=== PATIENT | male | born 1995 | race Asian ===

== ENCOUNTER 2019-02-12 16:37 | Emergency (ER) | payer OTHER ==
[~2019-02-12] VITALS: Ht 170.2 cm; Wt 60.3 kg
--- NOTE | 2019-02-12 16:59 | NUR ---
ED Nurse Note: PT WALKED IN TO ER TODAY FROM HOME. AOX4. PT ACCOMPANIED BY DOPE SPRAYER DUE TO HX OF AUTISM. PT C/O ITCHY GENERALIZED BODY RASH X 1 MONTH AGO. PT DENIES ANY CHANGES TO ROUTINE. PT DENIES ANY NEW FRAGRANCES, DETERGENTS, MEDS, OR OTHER PRODUCTS.
[2019-02-12 17:00] VITALS: BP 112/82
[2019-02-12] MEDS ORDERED: KENALOG 0.5% CR15 GM APPLIC (17:09)
[2019-02-12] MEDS ORDERED: PERMETHRIN60 GM TOPIC (17:09)
--- NOTE | 2019-02-12 17:13 | Emergency Room Report ---
History of Present Illness General Chief Complaint: Skin Rash/Abscess Source: Patient Present Illness HPI 23-year-old male patient presents the ER brought in by care worker from [facility]. Patient has a history of autism. Reports had a rash on his body for the past month. Reports is pruritic. Denies pain. Denies fever, chest pain, shortness of breath. Timothy abdominal pain, denies vomiting or diarrhea. Reports the rash spares his palms and soles. Denies recent camping trips. Denies recent sexual activity. Denies new detergents or soaps. Denies history of allergy symptoms. Reports that he lives alone in his own room. Denies contacts at his facility with similar symptoms. Denies other symptoms. Reports has not taken medication for relief of symptoms. Allergies: Coded Allergies: Animal Dander (Verified Allergy, Unknown, 02/12/19) Patient History Past Medical History: see triage record Reviewed Nursing Documentation: PMH: Agreed; PSxH: Agreed Nursing Documentation-PMH History Of Psychiatric Problem: Yes - Autism Review of Systems All Other Systems: negative except mentioned in HPI Physical Exam Vital Signs Date Time Temp Pulse Resp B/P (MAP) Pulse Ox O2 Delivery O2 Flow Rate FiO2 02/12/19 16:46 97.5 84 18 115/79 98 Room Air Sp02 EP Interpretation: reviewed, normal General Appearance: well appearing, no apparent distress, alert, GCS 15, non- toxic Head: normocephalic, atraumatic Eyes: bilateral eye normal inspection, bilateral eye PERRL ENT: hearing grossly normal, normal pharynx, no angioedema, normal voice, uvula midline, moist mucus membranes Neck: full range of motion Respiratory: lungs clear, normal breath sounds, no rhonchi, no respiratory distress, no accessory muscle use, no wheezing, speaking full sentences Cardiovascular #1: regular rate, rhythm, no edema Musculoskeletal: back normal, digits/nails normal, gait/station normal, normal range of motion, non-tender Neurologic: alert, oriented x3, responsive, motor strength/tone normal, sensory intact Psychiatric: mood/affect normal Skin: rash - Maculopapular rash over upper extremities and upper back, lower extremities, no surrounding erythema or edema, no palpable mass, no crusting, no vesicles, no blisters Medical Decision Making PA Attestation Dr. Doshi is my supervising Physician whom patient management has been discussed with. Diagnostic Impression: Primary Impression: Rash and other nonspecific skin eruption ER Course Pt. presents to the ED c/o rash. Ddx considered but are not limited to atopic dermatitis, scabies, shingles, hives, urticaria, angiodema, allergic reaction, impetigo. Vital signs: are WNL, pt. is afebrile ER COURSE Will provide patient with triamcinolone for pruritus symptoms. Will also provide patient with permethrin to cover for possible scabies. Do not scratch or itch. Advised on cleaning all clothes and bedding. Follow-up with primary care provider discussed referral to dermatology. Followup with dermatology. DISCHARGE: At this time pt. is stable for d/c to home. Patient resting comfortably, in no acute distress, nontoxic appearinge. Will provide printed patient care instructions, and any necessary prescriptions. Care plan and follow up instructions have been discussed with the patient prior to discharge. Patient provided with list of healthcare clinics to establish primary care physician. Patient instructed to follow-up with primary care provider in 3 - 5 days. Patient questions asked and answered. ER precautions given. Patient instructed to return to ER immediately for any new or worsening of symptoms including but not limited to increasing SOB, persistent fever. - Please note that this Emergency Department Report was dictated using iSTARparking analyst technology software, occasionally this can lead to erroneous entry secondary to interpretation by the dictation equipment. Last Vital Signs Date Time Temp Pulse Resp B/P (MAP) Pulse Ox O2 Delivery O2 Flow Rate FiO2 02/12/19 17:00 97.8 82 17 112/82 99 Room Air Status: improved Disposition: HOME, SELF-CARE Condition: Stable Scripts Triamcinolone Acet (Triamcinolone Acetonide) 15 Gm Cream..g. 15 GM APPLIC BID, #15 GM Prov: Truman Mota 02/12/19 Permethrin* (ELIMITE*) 60 Gm Cream..g. 1 APPLIC TOPIC ONCE, #60 GM 0 Refills Apply cream from head to toe; leave on for 8-14 hours before washing off with water; may reapply in 1 week if live mites appear. Prov: Truman Mota 02/12/19 Patient Instructions: Rash, Scabies, Pediatric Additional Instructions: Followup with primary care provider in 3 -5 days. Request referral to dermatology as needed. Do not scratch or itch. Apply cool compresses to affected area. Wash all clothes and bedding. Take medications as directed. Do not apply topical steroid medication to face or skin creases. SE Benadryl drowsiness, do not take prior to drinking, driving, operating heavy machinery. Take Claritin during the day and Benadryl at night for itching symptoms. Patient questions asked and answered. ER precautions given, patient instructed to return to ER immediately for any new or worsening of symptoms. [facility] Truman Mota Feb 12, 2019 17:13
[2019-02-12 17:22] VITALS: BP 116/84
--- NOTE | 2019-02-12 17:23 | NUR ---
ED Nurse Note: PT SITTING PEACEFULLY IN BED IN NAD. AOX4. EAP SPECIALIST AT BEDSIDE. PRESCRIPTIONS AND DISCHARGE PAPERWORK EXPLAINED TO EAP SPECIALIST. EAP SPECIALIST VERBALIZES UNDERSTANDING AND ALL QUESTIONS ANSWERED. PRESCRIPTIONS AND DISCHARGE PAPERWORK GIVEN TO EAP SPECIALIST AND ID WRISTBAND REMOVED FROM PT. PT WALKED OUT OF ER WITH STEADY GAIT AND ALL BELONGINGS ACCOMPANIED BY EAP SPECIALIST.
== END 2019-02-12 17:45 | disposition home or self-care (01) ==
LOC: EMR 17:26
DX: R21 Rash and other nonspecific skin eruption (principal); F84.0 Autistic disorder; Z91.048 Other nonmedicinal substance allergy status
CPT/HCPCS: 99282

== ENCOUNTER 2019-05-03 09:40 | Emergency (ER) | payer OTHER ==
[~2019-05-03] VITALS: Ht 170.2 cm; Wt 55.3 kg
[~2019-05-03 09:40] MED LIST: KENALOG 0.5% CR15 GM APPLIC; PERMETHRIN60 GM TOPIC
[2019-05-03 09:57] VITALS: BP 114/65
--- NOTE | 2019-05-03 09:57 | NUR ---
ED Nurse Note: Pt came in from Residential Facility with guardian due to bug bite all over the body x " a couple of days". No complaint of pain. AOx3, VSS tasha. Will cont to monitor.
--- NOTE | 2019-05-03 10:03 | Emergency Room Report ---
History of Present Illness General Chief Complaint: Skin Rash/Abscess Source: Patient, Caregiver Present Illness HPI Patient presents with a itchy rash. He has never had allergies. He just visited his parents over the weekend. He is not sure how he got these. People think that they are bites. His vaccinations are up-to-date. The patient has some developmental delay and therefore it is difficult to obtain a exact history. He complains about itching. There is no fever. He denies any pain. He was treated for scabies with permethrin and triamcinolone 02/12/19. The staff state this rash just occurred. Allergies: Coded Allergies: Animal Dander (Verified Allergy, Unknown, 02/12/19) Patient History Past Medical History: see triage record Social History: Denies: smoking, alcohol use, drug use Social History Narrative in a care facility Reviewed Nursing Documentation: PMH: Agreed; PSxH: Agreed Nursing Documentation-PMH Past Medical History: No Stated History Review of Systems Constitutional: Reports: see HPI Eye: Denies: discharge ENT: Denies: throat pain Respiratory: Denies: shortness of breath Gastrointestinal: Denies: diarrhea, nausea, vomiting Genitourinary: Denies: dysuria Musculoskeletal: Denies: joint pain Skin: Reports: see HPI Psychiatric: Reports: see HPI Allergic: Reports: see HPI Physical Exam Vital Signs Date Time Temp Pulse Resp B/P (MAP) Pulse Ox O2 Delivery O2 Flow Rate FiO2 05/03/19 09:46 98 20 114/65 (81) 97 Room Air Sp02 EP Interpretation: reviewed, normal General Appearance: well appearing, no apparent distress Head: normocephalic, atraumatic Eyes: bilateral eye normal inspection, bilateral eye PERRL ENT: hearing grossly normal, normal pharynx, normal voice, moist mucus membranes Neck: full range of motion, supple Respiratory: no respiratory distress, speaking full sentences Gastrointestinal: normal inspection Musculoskeletal: back normal, digits/nails normal, gait/station normal Neurologic: alert, grossly normal Psychiatric: mood/affect normal - Developmental delay Skin: other - Patches of punctate lesions with excoriations. They are mostly on extremities however there is some that involved areas of the trunk and chest. No lesions on the face. Medical Decision Making Diagnostic Impression: Primary Impression: Rash and other nonspecific skin eruption ER Course Resents with eating on several parts of his body that are covered. Differential includes scabies, bug bites, viral exanthem, hives amongst others. The patient will be treated with permethrin cream here and given Benadryl. Also precautions regarding scabies will be given to the facility where he is. It is possible that these are lesions which are the result of prior scabies infestation. Patient advised to follow-up with a ibm bpm developer. Patient stable for outpatient observation and treatment. Last Vital Signs Date Time Temp Pulse Resp B/P (MAP) Pulse Ox O2 Delivery O2 Flow Rate FiO2 05/03/19 10:36 98.6 87 16 122/70 98 Room Air Status: improved Disposition: ASSISTED LIVING Condition: Stable Scripts Diphenhydramine Hcl* (BENADRYL*) 25 Mg Capsule 25 MG ORAL Q6H PRN for Itching, #20 CAP Prov: Gabriel Leon MD 05/03/19 Permethrin* (ELIMITE*) 60 Gm Cream..g. 1 APPLIC TOPIC ONCE, #60 GM 0 Refills Apply cream from head to toe; leave on for 8-14 hours before washing off with water; may reapply in 1 week if live mites appear. Prov: Gabriel Leon MD 05/03/19 Gabriel Leon MD May 03, 2019 10:03
[2019-05-03] MEDS ORDERED: PERMETHRIN60 GM TOPIC (10:05)
[2019-05-03] MEDS ORDERED: BENADRYL25 MG ORAL (10:05)
[2019-05-03 10:36] VITALS: BP 122/70
--- NOTE | 2019-05-03 10:36 | NUR ---
ER DISCHARGE NOTE: Patient is cleared to be discharged per ERMD, pt is alert/awake, on room air, with stable vital signs. pt/caregiver was given dc and prescription instructions, caregiver was able to verbalize understanding, pt id band removed. pt is able to ambulate with steady gait. pt took all belongings and left with his caregiver.
== END 2019-05-03 10:36 | disposition home or self-care (01) ==
LOC: EMR 10:20
DX: R21 Rash and other nonspecific skin eruption (principal); R62.50 Unspecified lack of expected normal physiological development in childhood; Z91.09 Other allergy status, other than to drugs and biological substances
CPT/HCPCS: 99282

== ENCOUNTER 2019-05-06 15:48 | Emergency (ER) | payer OTHER ==
[~2019-05-06] VITALS: Ht 165.1 cm; Wt 60.8 kg
[~2019-05-06 15:48] MED LIST changes: +BENADRYL25 MG ORAL
[2019-05-06 16:05] VITALS: BP 118/77
--- NOTE | 2019-05-06 16:05 | NUR ---
ED Nurse Note: pt walked in to ED with family member due to rashes on all over the body. pt seen by [facility] ERMD for multiple times for same sx. will wait for the further order.
--- NOTE | 2019-05-06 16:44 | Emergency Room Report ---
History of Present Illness General Chief Complaint: Skin Rash/Abscess Source: Caregiver Present Illness HPI 24 YO Male presents to the ED c/o rash on bilateral UE's (forearms) x 5 days. Denies pain. Pt. continues to have severe itching despite round of permethrin and taking benadryl. Pt.'s caregiver reports that He had similar outbreak 1 month ago which resolved completely with permethrin and triamcinolone. The pt. went home to visit and came home with current rash. Was seen here 5 days ago rx' d Benadryl and permethrin cream was applied. Pt.'s caregiver reports no improvement of his symptoms and pt. continues to scratch persistently. Caregiver is requesting documentation of wether this condition is contagious for the facility the pt. is staying at. Pt.'s caregiver states no other persons in contact with the pt. have developed symptoms. Pt. has not followed up with Dermatology as instructed at first visit 1 month ago. Pt. denies fevers, chills or swollen tender lymph nodes. Denies lesions/rashes elsewhere on the body. Denies new medications or body washes or creams. Denies swelling of the lips, tongue , throat or airway. Denies wheezing, or shortness of breath. Denies recent travel, recent illness or ill contacts. denies blisters, oral lesions, or sloughing of the skin Allergies: Coded Allergies: Animal Dander (Verified Allergy, Unknown, 02/12/19) Patient History Limited by: medical condition - developmental delay Past Medical History: see triage record Past Surgical History: none Pertinent Family History: none Reviewed Nursing Documentation: PMH: Agreed; PSxH: Agreed Nursing Documentation-PM Past Medical History: No History, Except For Hx Neurological Problems: Yes - developmentally disabled Review of Systems All Other Systems: negative except mentioned in HPI Physical Exam Vital Signs Date Time Temp Pulse Resp B/P (MAP) Pulse Ox O2 Delivery O2 Flow Rate FiO2 05/06/19 16:01 97.0 96 18 118/77 (91) 99 Room Air Sp02 EP Interpretation: reviewed, normal General Appearance: no apparent distress, alert, GCS 15, non-toxic Head: normocephalic, atraumatic Eyes: bilateral eye normal inspection, bilateral eye PERRL ENT: hearing grossly normal, no angioedema, normal voice, other - no stridor Neck: full range of motion Respiratory: chest non-tender, lungs clear, normal breath sounds, no respiratory distress, no accessory muscle use, no wheezing, speaking full sentences Cardiovascular #1: regular rate, rhythm, normal capillary refill Gastrointestinal: other - scant previous lesions noted but are healing/healed. Musculoskeletal: back normal, gait/station normal, normal range of motion, non- tender Neurologic: alert, oriented x3, responsive, motor strength/tone normal, sensory intact, normal gait, speech normal, grossly normal Psychiatric: other - developmental delay Skin: normal color, rash - multiple discrete yet localized/linear pattern erythematous papules. some scabbed with excoriations noted. no blisters or vessicles. no impressive surrounding erythema or warmth. primarily on the bilateral UE's, scant amount noted on the left anterior thorpe and anterior chest. Lymphatic: no adenopathy Medical Decision Making PA Attestation Dr. Goodrich is my supervising Physician whom patient management has been discussed with. Diagnostic Impression: Primary Impression: Rash and other nonspecific skin eruption ER Course 24 YO Male presents to the ED c/o rash on bilateral UE's (forearms) x 5 days. Denies pain. Pt. continues to have severe itching despite round of permethrin and taking benadryl. Pt.'s caregiver reports that He had similar outbreak 1 month ago which resolved completely with permethrin and triamcinolone. The pt. went home to visit and came home with current rash. Was seen here 5 days ago rx' d Benadryl and permethrin cream was applied. Pt.'s caregiver reports no improvement of his symptoms and pt. continues to scratch persistently. Caregiver is requesting documentation of wether this condition is contagious for the facility the pt. is staying at. Pt.'s caregiver states no other persons in contact with the pt. have developed symptoms. Pt. has not followed up with Dermatology as instructed at first visit 1 month ago. Pt. denies fevers, chills or swollen tender lymph nodes. Denies lesions/rashes elsewhere on the body. Denies new medications or body washes or creams. Denies swelling of the lips, tongue , throat or airway. Denies wheezing, or shortness of breath. Denies recent travel, recent illness or ill contacts. denies blisters, oral lesions, or sloughing of the skin Ddx considered but are not limited to cellulitis, scabies, shingles, varicella, dermatitis, urticaria, eczema, tinea, viral exanthem, SJS Vital signs: are WNL, pt. is afebrile H&PE are most consistent with non-specific rash, suspicious for scabies and post infection pruritus. no Evidence of secondary infections at this time. No evidence to suggest acute impending airway compromise or anaphylaxis. Is in no acute distress and non-toxic in appearance. ORDERS: none required at this time, the diagnosis is clinical ED INTERVENTIONS: None required at this time. --I discussed with this patient and the patient's caregiver that dermatology follow-up is necessary to determine exact etiology of this rash discussed with them that dermatology follow-up is also necessary as the patient is having no response to outpatient interventions. -I do not identify an emergent condition at this time. With current presentation , pt. is stable for close outpatient follow up and conservative treatment. D/ w pt. to return promptly to ED with worsening or new symptoms.- Pt. verbalizes' understanding and agreement with proposed treatment plan.proposed treatment plan. DISCHARGE: At this time pt. is stable for d/c to home. Will provide printed patient care instructions, and any necessary prescriptions. Care plan and follow up instructions have been discussed with the patient prior to discharge. Last Vital Signs Date Time Temp Pulse Resp B/P (MAP) Pulse Ox O2 Delivery O2 Flow Rate FiO2 05/06/19 16:01 97.0 96 18 118/77 (91) 99 Room Air Disposition: HOME, SELF-CARE Condition: Stable Scripts Permethrin* (ELIMITE*) 60 Gm Cream..g. 1 APPLIC TOPIC ONCE, #60 GM 0 Refills Apply cream from head to toe; leave on for 8-14 hours before washing off with water; may reapply in 1 week if live mites appear. Prov: Luisa Faith 05/06/19 Prednisone* (PREDNISONE*) 20 Mg Tablet 40 MG ORAL DAILY for 5 Days, #10 TAB Prov: Luisa Faith 05/06/19 Referrals: [facility],REFERRING (PCP) Patient Instructions: Rash Additional Instructions: MUST SEE A CATEGORY SPECIALIST TO DETERMINE IF PT. IS CONTAGIOUS [facility] Take medications as directed. Follow up with a Primary Care Provider in 3-5 days for DERMATOLOGY REFERRAL , even if your symptoms have resolved. Return sooner to ED if new symptoms occur, or current symptoms become worse. - Please note that this Emergency Department Report was dictated using [employer] greaser technology software, occasionally this can lead to erroneous entry secondary to interpretation by the dictation equipment. Luisa Faith May 06, 2019 16:44
[2019-05-06] MEDS ORDERED: PERMETHRIN60 GM TOPIC (16:45)
[2019-05-06] MEDS ORDERED: PREDNISONE20 MG ORAL (16:45)
[2019-05-06 16:51] VITALS: BP 122/70
--- NOTE | 2019-05-06 16:53 | NUR ---
ER DISCHARGE NOTE: Patient is cleared to be discharged per ERMD, pt is aox4, on room air, with stable vital signs. pt was given dc and prescription instructions, pt was able to verbalize understanding, pt id band removed. pt is able to ambulate with steady gait. pt took all belongings.
== END 2019-05-06 16:54 | disposition home or self-care (01) ==
LOC: EMR 16:25
DX: R21 Rash and other nonspecific skin eruption (principal); F79 Unspecified intellectual disabilities
CPT/HCPCS: 99282

== ENCOUNTER 2019-12-16 10:21 | Emergency (ER) | payer OTHER ==
[~2019-12-16] VITALS: Ht 162.6 cm; Wt 68.0 kg
[~2019-12-16 10:21] MED LIST changes: +PREDNISONE20 MG ORAL
[2019-12-16 10:35] VITALS: BP 118/79
--- NOTE | 2019-12-16 10:36 | NUR ---
ED Nurse Note:pt. came with c/o cough and friquient urination, he is with caregiver, hx of autism
--- NOTE | 2019-12-16 10:54 | Emergency Room Report ---
History of Present Illness General Chief Complaint: Upper Respiratory Illness Source: Patient, Caregiver Present Illness HPI Patient is a 24-year-old male past medical history of schizoaffective disorder and autism who is brought in by his caregiver with several complaints. Patient had a cough 5 days ago which was nonproductive, no fever no chills. Cough has since resolved but he needs clearance to return to his adult daycare. Also patient complains of urinary frequency for the past 2 days. He denies any dysuria or hematuria. He denies any foul-smelling urine. Patient denies any rash. He denies any abdominal pain, nausea or vomiting. Allergies: Coded Allergies: Animal Dander (Verified Allergy, Unknown, 02/12/19) Patient History Past Medical History: other - Schizoaffective disorder and autism Past Surgical History: none Social History: Denies: smoking, alcohol use, drug use Reviewed Nursing Documentation: PMH: Agreed; PSxH: Agreed Nursing Documentation-PMH Past Medical History: No History, Except For Hx Neurological Problems: Yes - developmentally disabled Review of Systems All Other Systems: negative except mentioned in HPI Physical Exam Vital Signs Date Time Temp Pulse Resp B/P (MAP) Pulse Ox O2 Delivery O2 Flow Rate FiO2 12/16/19 10:30 97.5 95 16 118/79 (92) 95 Room Air Sp02 EP Interpretation: reviewed, normal General Appearance: no apparent distress, alert, GCS 15, non-toxic Head: normocephalic, atraumatic Eyes: bilateral eye normal inspection, bilateral eye PERRL ENT: hearing grossly normal, normal pharynx, no angioedema, normal voice Neck: full range of motion, supple/symm/no masses Respiratory: chest non-tender, lungs clear, normal breath sounds, speaking full sentences Cardiovascular #1: regular rate, rhythm, no edema Gastrointestinal: normal bowel sounds, non tender, soft, non-distended, no guarding, no rebound Rectal: deferred Genitourinary: normal inspection, no CVA tenderness Musculoskeletal: back normal, normal range of motion, calf tenderness, gait/ station normal, non-tender Neurologic: alert, motor strength/tone normal, oriented x3, sensory intact, responsive, speech normal Psychiatric: other - Easily agitated Skin: no rash, warm/dry Lymphatic: no adenopathy Medical Decision Making Diagnostic Impression: Primary Impression: Encounter for medical screening examination Additional Impression: Urinary frequency ER Course Patient is nontoxic-appearing. Afebrile. Influenza swab negative. Urine demonstrates no evidence for UTI or glucose in the urine. Unclear etiology for the patient's urinary frequency. He will follow-up with his primary care for possible urology referral. Patient was given a note to return back to his adult school. After discussing with the patient and his caregiver the risks and benefits of further diagnostics, treatment plans, as well as indications for and risks of admission, the patient is agreeable to being discharged home. I have explained that their evaluation and treatment in the emergency department today is an important step towards them achieving better health but that their evaluation today is not intended to replace further evaluation and treatment by a physician in their local clinic. I have explained that while the current findings suggest no immediate life threatening emergency they will require further evaluation and treatment by a physician of their choice in their area. They understand that it will be necessary for them to review the final reports of their ED visit with their clinic physician. We have reviewed indications for return to the Emergency Department. I have explained that additional time may need to pass and/or additional testing as an outpatient may be necessary before a definitive diagnosis can be made. They tell me they are willing to follow up as instructed within the timeframe I recommend. They appear to understand what we discussed. Additionally they understand that if they are unable to be seen by an outpatient physician they are welcome, and in fact should, return to the Emergency Department for a repeat evaluation. The patient is stable at time of discharge. Last Vital Signs Date Time Temp Pulse Resp B/P (MAP) Pulse Ox O2 Delivery O2 Flow Rate FiO2 12/16/19 10:35 95 16 Room Air 12/16/19 10:35 97.5 118/79 95 Disposition: HOME, SELF-CARE Condition: Stable Referrals: [facility],REFERRING (PCP) Yulia Perez M.D. Dec 16, 2019 10:54
--- NOTE | 2019-12-16 10:56 | NUR ---
ED Nurse Note:urine and flu swab sent to labs
[2019-12-16 10:57] LABS: APPEARANCE,URINE CLEAR; BILIRUBIN, URINE NEGATIVE (NEGATIVE); GLUCOSE, URINE (UA) NEGATIVE (NEGATIVE); KETONES,URINE 2+ (NEGATIVE); LEUKOCYTE ESTERASE ,URINE NEGATIVE (NEGATIVE); NITRITE,URINE NEGATIVE (NEGATIVE); PH,URINE 7 (4.5-8.0); PROTEIN,URINE NEGATIVE (NEGATIVE); UROBILINOGEN,URINE 1 MG/DL (0.0-1.0)
[2019-12-16 10:58] LABS: COLOR,URINE YELLOW
[2019-12-16] MEDS ORDERED: QUETIAPINE FUMA50 MG ORAL (11:06)
[2019-12-16] MEDS ORDERED: TRAZODONE HCL100 MG ORAL (11:06)
[2019-12-16] MEDS ORDERED: QUETIAPINE FUM400 MG ORAL (11:06)
[2019-12-16] MEDS ORDERED: DEPAKOTE250 MG PO (11:06)
[2019-12-16] MEDS ORDERED: VISTARIL10 MG ORAL (11:06)
--- NOTE | 2019-12-16 11:21 | Diagnostic Imaging Report ---
Indication: Dyspnea Comparison: None A single view chest radiograph was obtained. Findings: Cardiomediastinal appearance is within normal limits for age. The lungs are clear. Pulmonary vascularity is appropriate. The diaphragmatic contour is smooth and costophrenic angles are sharp. No pleural effusions are identified. The bones are unremarkable. Impression: No acute findings
[2019-12-16 11:25] VITALS: BP 118/79
--- NOTE | 2019-12-16 11:25 | NUR ---
ER DISCHARGE NOTE: Patient is cleared to be discharged per ERMD, pt is aox4, on room air, with stable vital signs. pt was given dc instructions, pt was able to verbalize understanding, pt is able to ambulate with steady gait and caregiver pt took all belongings.
== END 2019-12-16 11:40 | disposition home or self-care (01) ==
LOC: EMR 10:46
DX: Z76.89 Persons encountering health services in other specified circumstances (principal); R35.0 Frequency of micturition; F84.0 Autistic disorder; R62.50 Unspecified lack of expected normal physiological development in childhood; Z91.09 Other allergy status, other than to drugs and biological substances
CPT/HCPCS: 71045; 81003; 86710; Z7502; 99283